=== PATIENT | male | born 1995 | race Caucasian/White ===

== ENCOUNTER 2016-09-05 18:08 | Emergency (ER) | payer BC ==
[~2016-09-05] VITALS: Ht 172.7 cm; Wt 63.9 kg
[2016-09-05 18:11] VITALS: TEMP 37.7; Ht 172.7 cm; Wt 63.9 kg
[2016-09-05] MEDS ORDERED: AMPICILLIN/SULBACTAM SOD INJ 3,000 MG in SODIUM CHLORIDE 0.9% 100ML 100 ML IV STA (18:30)
[2016-09-05] MEDS ORDERED: SODIUM CHLORIDE 0.9% 1000ML 1,000 ML IV STA (18:30)
[2016-09-05] MEDS ORDERED: DEXAMETHASONE SOD INJ 10 MG/ML VIAL IV STA (18:30)
[2016-09-05] MEDS ORDERED: MoRPHine SULFATE 2 MG/ML CARP IV STA (18:42)
[2016-09-05] MEDS ORDERED: DOXY100T PO (18:55)
[2016-09-05] MEDS ORDERED: IBUP-1050 PO (18:55)
[2016-09-05 19:16] LABS: HEMATOCRIT 41.1 % (42-52); MEAN CELL VOLUME 88.2 fL (80-100); MEAN CORPUSCULAR HEMOGLOBIN 31.1 pg (25-34); MEAN CORPUSCULAR HGB CONC 35.3 g/dl (32-36); MEAN PLATELET VOLUME 9.9 fL (7.4-10.4); PLATELET COUNT 197 K/uL (130-400); RED BLOOD COUNT 4.66 M/uL (4.7-6.1); WHITE BLOOD COUNT 17.67 K/uL (4.8-10.8)
[2016-09-05 19:19] LABS: BUN/CREATININE RATIO 11.9 (10-20); CALCIUM 9.3 mg/dl (8.5-10.1); CREATININE 1.2 mg/dl (0.60-1.40); POTASSIUM 4.1 mmol/L (3.5-5.1)
[2016-09-05 19:54] LABS: BASO % 0.2 %; BASO ABS # 0.03 K/uL (0-0.2); COMPLETE YES; EOS % 0.3 %; IG% 0.2 %; LYMPH % 10.2 %; LYMPH ABS # 1.81 K/uL (1.2-3.4); MONO % 10.3 %; NEUT % 78.8 %
[2016-09-05] MEDS ORDERED: PENI-82 PO (20:54)
[2016-09-05] MEDS ORDERED: HYDR-5688 PO (20:54)
[2016-09-05] MEDS ORDERED: CLC/300 PO (20:54)
[2016-09-05] MEDS ORDERED: METH4PAK PO (20:54)
[2016-09-05] MEDS ORDERED: CLINDAMYCIN 150MG HOME PACK PO STA (20:59)
[2016-09-05] MEDS ORDERED: NORCO 5/325MG HOME PACK PO STA (20:59)
[2016-09-05] MEDS ORDERED: PENICILLIN HOME PACK 500MG (4 DOSES)BTL PO STA (20:59)
--- NOTE | 2016-09-05 20:59 | EMERGENCY ROOM VISIT NOTE ---
History First contact with patient: 18:15 Chief Complaint: THROAT PAIN/INJURY Stated Complaint: ABSCESS IN MOUTH NEEDS DRAINED History of Present Illness The patient is a 20 year old male who presents to the Emergency Room via private vehicle with complaints of "abscess in mouth, needs drained". The patient states that he began Friday with a tickle in his throat, followed by this past Friday he woke up with swelling in the left tonsillar region. He states that he has been using doxycycline for his acne, and [id number] decongestants without relief. He does take ibuprofen, of which she began around 4 AM this morning and has been taking this every 4 hours. His last dose was at 5 PM. The tonsils according to the patient are swollen and red. He has difficulty swallowing which began Friday and today. He denies any drooling, but does note that he is expressing more saliva. He notes that he feels his voice has changed. He rates the left tonsillar pain as a 6.5-7/10. There is associated fevers and chills. He denies any nausea or vomiting. He was seen today by [facility], and evaluated by George Duggan PA-C who is referred the patient here for potential drainage of a suspected peritonsillar abscess. He notes that they did perform a rapid strep and he was found be positive. Review of Systems A complete 10-point Review of Systems was discussed with the patient, with pertinent positives and negatives listed in the History of Present Illness. All remaining Review of Systems questions can be considered negative unless otherwise specified. Past Medical/Surgical History No pertinent past medical history. Family History No pertinent family history. Social History Smoking Status: Never Smoker Social History: Patient is a [employer] student. Current/Historical Medications Scheduled Clindamycin HCl (Clindamycin HCl), 1 CAP PO TID Doxycycline Hyclate (Doxycycline Hyclate), 1 TAB PO DAILY Methylprednisolone (Medrol Dosepak), 1 PKT PO UD Penicillin V Potassium (Veetids), 500 MG PO QID Scheduled PRN Hydrocodone/Acetaminophen 5MG/325MG ([place] 5MG/325MG), 1-2 TABLET PO Q6H PRN for Pain Ibuprofen (Advil), 400 MG PO Q4 PRN for Pain Allergies Coded Allergies: No Known Allergies (Unverified , 09/05/16) Physical Exam Vital Signs Date Time Temp Pulse Resp B/P Pulse Ox O2 Delivery O2 Flow Rate FiO2 09/05/16 21:35 90 16 126/64 97 09/05/16 20:31 84 16 120/80 98 Room Air 09/05/16 19:34 89 18 117/67 100 Room Air 09/05/16 18:11 37.7 103 18 115/65 99 Room Air 09/05/16 18:11 Room Air Physical Exam VITAL SIGNS - Vital signs and nursing notes were reviewed. Patient is febrile 37.7, normotensive, tachycardic at a rate of 100 bpm and is saturating well on room air 99%. GENERAL -20-year-old male appearing his stated age who is in no acute distress. Communicates well with provider and answers questions appropriately, there is a hot potato voice noted. SKIN - Without rashes. No petechial rashes. HEAD - NC/AT. EYES - PERRL with EOMI bilaterally. Sclera anicteric. Palpebral conjunctiva pink and moist with no injection noted. EARS - No deformities of external structures noted on gross examination bilaterally. No pain elicited with palpation of the tragus bilaterally. External auditory canals without discharge or otorrhea. Tympanic membranes pearly muñoz without retraction or bulging. No fluid or purulent material visualized behind the TM. Handle of malleus, umbo, cone of light, pars tensa/ flaccid all easily visualized. NOSE - Midline and without cyanosis. No epistaxis or purulent drainage noted. Septum midline without deviation or septal hematoma noted. MOUTH/OROPHARYNX - Without perioral cyanosis. Buccal mucosa pink and moist and without leukoplakia. Mild trismus noted. Tongue midline with equal elevation of palate bilaterally. The soft palate on the left is edematous and erythematous. There is 3 borderline 4+ tonsillar edema of the left and 2+ on the right. The uvula is midline without deviation. The tonsils are not touching the uvula. NECK - Neck with FROM. Supple to palpation. Anterior cervical lymphadenopathy noted. No nuchal rigidity. LUNGS - Chest wall symmetric without accessory muscle use, intercostals retractions, or central cyanosis. Normal vesicular breath sounds CTA B/L. No wheezes, rales, or rhonchi appreciated. CARDIAC - RRR with S1/S2. No murmur, rubs, or gallops appreciated. Medical Decision & Procedures Laboratory Results 09/05/16 18:54 Red Blood Count 4.66, Mean Corpuscular Volume 88.2, Mean Corpuscular Hemoglobin 31.1, Mean Corpuscular Hemoglobin Concent 35.3, Mean Platelet Volume 9.9, Neutrophils (%) (Auto) 78.8, Lymphocytes (%) (Auto) 10.2, Monocytes (%) (Auto) 10.3, Eosinophils (%) (Auto) 0.3, Basophils (%) (Auto) 0.2, Neutrophils # (Auto ) 13.92, Lymphocytes # (Auto) 1.81, Monocytes # (Auto) 1.82, Eosinophils # (Auto ) 0.05, Basophils # (Auto) 0.03 09/05/16 18:54 Test 09/05/16 18:54 White Blood Count 17.67 K/uL (4.8-10.8) Red Blood Count 4.66 M/uL (4.7-6.1) Hemoglobin 14.5 g/dL (14.0-18.0) Hematocrit 41.1 % (42-52) Mean Corpuscular Volume 88.2 fL (80-100) Mean Corpuscular Hemoglobin 31.1 pg (25-34) Mean Corpuscular Hemoglobin Concent 35.3 g/dl (32-36) Platelet Count 197 K/uL (130-400) Mean Platelet Volume 9.9 fL (7.4-10.4) Neutrophils (%) (Auto) 78.8 % Lymphocytes (%) (Auto) 10.2 % Monocytes (%) (Auto) 10.3 % Eosinophils (%) (Auto) 0.3 % Basophils (%) (Auto) 0.2 % Neutrophils # (Auto) 13.92 K/uL (1.4-6.5) Lymphocytes # (Auto) 1.81 K/uL (1.2-3.4) Monocytes # (Auto) 1.82 K/uL (0.11-0.59) Eosinophils # (Auto) 0.05 K/uL (0-0.5) Basophils # (Auto) 0.03 K/uL (0-0.2) RDW Standard Deviation 40.5 fL (36.4-46.3) RDW Coefficient of Variation 12.7 % (11.5-14.5) Immature Granulocyte % (Auto) 0.2 % Immature Granulocyte # (Auto) 0.04 K/uL (0.00-0.02) Anion Gap 6.0 mmol/L (3-11) Est Creatinine Clear Calc Drug Dose 88.8 ml/min Estimated GFR () 100.3 Estimated GFR (Non- 86.5 BUN/Creatinine Ratio 11.9 (10-20) Calcium Level 9.3 mg/dl (8.5-10.1) Medications Administered Medications (Trade) Dose Ordered Sig/Royal Route Start Time Stop Time Status Last Admin Dose Admin Sodium Chloride 1,000 ml @ 999 mls/hr Q1H1M STAT IV 09/05/16 18:30 09/05/16 19:30 DC 09/05/16 19:01 999 MLS/HR Ampicillin Sodium/ Sulbactam Sodium/ Sodium Chloride (Unasyn Inj/Nss 100ml) 108 ml @ 200 mls/hr NOW STAT IV 09/05/16 18:30 09/05/16 19:02 DC 09/05/16 19:34 200 MLS/HR Dexamethasone Sodium Phosphate (Decadron Inj) 10 mg NOW STAT IV 09/05/16 18:30 09/05/16 18:38 DC 09/05/16 19:01 10 MG Morphine Sulfate (MoRPHine SULFATE INJ) 2 mg NOW STAT IV 09/05/16 18:42 09/05/16 18:43 DC 09/05/16 19:03 2 MG Acetaminophen/ Hydrocodone Bitart ([place] 5/325mg Home Pack) 1 homepack UD STAT PO 09/05/16 20:59 09/05/16 21:03 DC 09/05/16 21:09 1 HOMEPACK Clindamycin HCl (Cleocin 150MG Home Pack) 2 homepack UD STAT PO 09/05/16 20:59 09/05/16 21:03 DC 09/05/16 21:09 2 HOMEPACK Penicillin V Potassium (Pen-Vk 500MG Home Pack) 1 homepack UD STAT PO 09/05/16 20:59 09/05/16 21:03 DC 09/05/16 21:10 1 HOMEPACK Medical Decision Patient was seen and evaluated as above. He presents with referral for potential peritonsillar abscess drainage. Clinically he appears to have a potential peritonsillar abscess. IV access was initiated and the above workup was performed. I did elect to give him 10 mg of Decadron followed by 3 g of Unasyn. For pain he was given 2 mg of morphine. He was reevaluated and was feeling much better. He was also hydrated with 1 liter of normal saline. He is a leukocytosis of 17.67, mild anemia noted with red blood cell count of 4.66. PRP unremarkable. I then called the on-call ear nose and throat surgeon , Dr. Caruso. He agreed to come in and evaluate the patient. Dr. Caruso then aspirated approximately 2 mL's of purulent drainage from the left tonsillar region. Please refer to his procedure note. It was then recommended to provide the patient with Pen-Vee K 500 mg 4 times a day for 10 days. Clindamycin 300 mg 3 times a day for 7 days. A pain medication, school note as well as a Medrol Dosepak. I do believe these are all reasonable medications. Because the patient's pharmacy was closed I did elect to send the first day supply home with the patient with the remainder sent to the pharmacy. He'll be given a short-term prescription for [place] for pain. He is to return here for any worsening, and is to call the ear nose and throat surgeons office first thing tomorrow morning to schedule follow-up for Friday. Patient was educated upon worrisome symptoms which to return, had questions prior to discharge and was discharged home in good condition. In evaluation treatment this patient following differential diagnoses were entertained: Streptococcal pharyngitis, peritonsillar abscess, epiglottitis, among others. Impression Primary Impression: Peritonsillar abscess Departure Information Dispostion Home / Self-Care Condition GOOD Prescriptions Hydrocodone/Acetaminophen 5MG/325MG ([place] 5MG/325MG) Tab 1-2 TABLET PO Q6H Y for Pain, #15 TAB For Initial Treatment Prov: Vineet Quintana PA-C 09/05/16 Methylprednisolone (MEDROL DOSEPAK) 4 Mg Brian 1 PKT PO UD for 6 Days, #1 PKT Prov: Vineet Quintana PA-C 09/05/16 Clindamycin HCl (Clindamycin HCl) 300 Mg Cap 1 CAP PO TID for 6 Days, #18 CAP Prov: Vineet Quintana PA-C 09/05/16 Penicillin V Potassium (Veetids) 500 Mg Tab 500 MG PO QID for 9 Days, #36 TAB Prov: Vineet Quintana PA-C 09/05/16 Referrals George Duggan PA-C (PCP) Chente Caruso M.D. Patient Instructions My [facility] Additional Instructions You were seen in the emergency department for your peritonsillar abscess. You were seen in the emergency department for your sore throat. You were prescribed PEN VK 500mg to be taken every 6 hours (4 times daily) for 10 days. This is an antibiotic. All antibiotics have the potential to cause diarrhea. Stop this medication and contact a medical provider if you were to develop any significant adverse side effects including: wheezing, shortness of breath, passing out, vomiting, or a diffuse rash. Always take antibiotics as directed and COMPLETE the ENTIRE course regardless of the improvement of your symptoms. You were prescribed Clindamycin to be taken three times daily (every 8 hours) for 7 days. This is an antibiotic. All antibiotics have the potential to cause diarrhea. Stop this medication and contact a medical provider if you were to develop any significant adverse side effects including: wheezing, shortness of breath, passing out, vomiting, or a diffuse rash. Always take antibiotics as directed and COMPLETE the ENTIRE course regardless of the improvement of your symptoms. You had been prescribed [place] for your pain. This is a narcotic medication which makes illegal for you to drive or operate machinery. Do not take this with tylenol. For pain and fever control, you can use the following [id number] medicines (if >12 yo): - Regular strength (200 mg/tab) Advil (ibuprofen) 1-2 tabs every 4-6 hours as needed. Do not exceed a dose of 3200 mg per day. - For best results, alternate dosing of Tylenol and Advil. In addition to your prescribed medications, you can also use the following home remedies: - Warm salt-water gargles 4 times per day can soothe your throat and help to fight infection. - Warm tea with honey can soothe your throat. Return to the emergency department if your symptoms persist or worsen over the next 2-3 days despite treatment course outlined above. Return to the emergency department if you develop the following symptoms of: inability to swallow solids , liquids, or drool; excessive wheezing or inability to catch your breath; or intractable fever or pain. You have been provided the number for Dr. Caruso, please call this number tomorrow to schedule follow-up for Friday. Dr. Caruso is quality assurance monitor chassis all weekend, if you experience any difficulties please return to emergency department immediately. Thank you for your time.
[2016-09-05 21:35] VITALS: BP 126/64; PULSE 90; O2SAT 97
--- NOTE | 2016-09-06 04:36 | ENT CONSULTATION ---
DATE OF CONSULTATION: 09/05/2016 PERSON REQUESTING CONSULTATION: MYRANDA Gonzales in the Emergency Department. INDICATION: Rule out left peritonsillar abscess. 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 He was well until 2 days ago when he developed a tickling sensation his throat. He continued to have increased discomfort in his throat which led to increased difficulty in swallowing today. He went to [facility] and was directed to my office. Due to lack of a ride, he was unable to make it to my office and came to the Emergency Department. His past medical history, review of systems and vitals, they are all documented in the Emergency Department report. PHYSICAL EXAMINATION: GENERAL: This is an alert and cooperative, oriented young man appearing his stated age. His father was present in the room. He was examined in module C4. HEENT: The patient had a hot potato voice. He did not have trismus. He did not have uvular deviation. He had only minimal fullness in the left peritonsillar area. He had a massive left tonsil, compared to his right tonsil. I decided to perform aspiration as opposed to incision and drainage. I sprayed the back of his throat with Cetacaine spray and then aspirated with a #18 gauge needle and bri off 2 mL of pus. This was sent for culture. ASSESSMENT AND PLAN: This patient did have a very minimal left peritonsillar abscess. I discussed with Dinh Manley PA-C, that he should be on 4 medications: A. Penicillin-VK 500 mg q.i.d. for 10 days. B. Clindamycin 300 mg t.i.d. for 7 days. C. Medrol Dosepak x1. D. Some form of a pain medicine. I also recommended to the patient q.i.d. gargles with salt water, increased p.o. fluid intake, decreased activities, and rest until FridaySeptember 09. I also asked Dinh Manley PA-C, to provide the patient with a note to be off work until 09/09. The patient was also given my contact information for my office and will return to see me in my office on September 09. ASHU
== END 2016-09-05 21:35 | disposition home or self-care (01) ==
LOC: C.EDB 18:11 → C.EDC 21:35
DX: J36 Peritonsillar abscess (principal); R50.9 Fever, unspecified

== ENCOUNTER 2016-12-17 17:36 | Inpatient (IN) | payer BC ==
[~2016-12-17] VITALS: Ht 177.8 cm; Wt 63.8 kg
[~2016-12-17 17:36] MED LIST: DOXY100T PO; HYDR-5688 PO; IBUP-1050 PO
[2016-12-17] MEDS ORDERED: SODIUM CHLORIDE 0.9% 1000ML 1,000 ML IV STA (18:05)
[2016-12-17] MEDS ORDERED: ACETAMINOPHEN IV 100 ML IV STA (18:05)
[2016-12-17 18:15] LABS: BASO % 0.1 %; BASO ABS # 0.02 K/uL (0-0.2); COMPLETE YES; EOS % 0.4 %; IG% 0.4 %; LYMPH % 7.4 %; LYMPH ABS # 1.27 K/uL (1.2-3.4); MEAN CELL VOLUME 90.7 fL (80-100); MEAN CORPUSCULAR HEMOGLOBIN 32.3 pg (25-34); MEAN CORPUSCULAR HGB CONC 35.6 g/dl (32-36); MEAN PLATELET VOLUME 10.3 fL (7.4-10.4); MONO % 9.1 %; NEUT % 82.6 %; PLATELET COUNT 182 K/uL (130-400); RED BLOOD COUNT 4.74 M/uL (4.7-6.1); WHITE BLOOD COUNT 17.09 K/uL (4.8-10.8)
[2016-12-17] MEDS ORDERED: DEXAMETHASONE SOD INJ 10 MG/ML VIAL IV ONE (18:15)
[2016-12-17] MEDS ORDERED: CLIN1CAP51 PO (18:17)
[2016-12-17] MEDS ORDERED: ACET-1256 PO (18:17)
[2016-12-17] MEDS ORDERED: HYDR-5688 PO (18:17)
[2016-12-17] MEDS ORDERED: PRED20TA PO (18:17)
[2016-12-17] MEDS ORDERED: AMPICILLIN/SULBACTAM SOD INJ 3,000 MG in SODIUM CHLORIDE 0.9% 100ML 100 ML IV ONE (18:30)
--- NOTE | 2016-12-17 18:37 | EMERGENCY ROOM VISIT NOTE ---
History First contact with patient: 17:48 Chief Complaint: OTHER COMPLAINT Stated Complaint: PRAKASH TONSILAR ABSECESS History of Present Illness The patient is a 20 year old male who presents to the Emergency Room with complaints of sore throat, difficulty swallowing, and fevers started 2 days ago. Patient states he saw his provider at [facility] last night, who suspected a left peritonsillar abscess and placed him on clindamycin, prednisone, and [place] for pain. He states his rapid strep test there was positive. Patient states his symptoms got progressively worse today, he is having more pain with swallowing, persistent fevers, and increased swelling in his throat. Patient's father notes that his voice sounds muffled today which is new. Patient reports a history of frequent strep infections, previous left peritonsillar abscess in August that was drained. He states he is scheduled to have a tonsillectomy on by Dr. Caruso. Denies difficulty breathing or wheezing, chest pain, nausea or vomiting, abdominal pain, urinary symptoms, or rash. Review of Systems A complete 10 point review of systems was reviewed with the patient with pertinent positives and negatives as per history of present illness. All else were negative. Past Medical/Surgical History Medical Problems: (1) Acute tonsillitis Social History Smoking Status: Never Smoker Current/Historical Medications Scheduled Clindamycin HCl (Clindamycin HCl), 300 MG PO TID Doxycycline Hyclate (Doxycycline Hyclate), 1 TAB PO DAILY Prednisone (Prednisone), 60 MG PO DAILY Scheduled PRN Acetaminophen (Tylenol), 1,000 MG PO Q8 PRN for Pain Hydrocodone/Acetaminophen 5MG/325MG ([place] 5MG/325MG), 1 TABLET PO Q4 PRN for Pain Physical Exam Vital Signs Date Time Temp Pulse Resp B/P (MAP) Pulse Ox O2 Delivery O2 Flow Rate FiO2 12/17/16 18:51 38.1 99 18 130/71 100 Room Air 12/17/16 18:18 98 Room Air 12/17/16 17:38 38.4 102 18 122/67 99 Room Air Physical Exam CONSTITUTIONAL: No acute distress, but appears uncomfortable. Moderately dehydrated. Alert and oriented X 4 with normal affect. HEENT: Normocephalic, atraumatic. Pupils equal, round and reactive to light, EOMI. TMs normal. Pharynx injected and erythematous with pustules noted, left greater than right, with right deviation of the uvula. Positive trismus. Dry mucous membranes. NECK: Supple, full active range of motion without discomfort. Left anterior cervical adenopathy, tender to palpation. RESPIRATORY: Clear to auscultation bilaterally with no wheezing, crackles, rhonchi or stridor. Equal expansion bilaterally. CARDIOVASCULAR: Regular rate and rhythm with no murmurs, rubs or gallops. Normal peripheral perfusion. No edema. GASTROINTESTINAL: Soft, nontender, nondistended. Bowel sounds present in all quadrants. MUSCULOSKELETAL: Full range of motion of all joints without discomfort. INTEGUMENTARY: No rash or other significant dermatologic conditions noted. NEUROLOGIC: Cranial nerves II-XII grossly intact. No focal neurologic deficits noted. Medical Decision & Procedures Laboratory Results 12/17/16 18:05 Red Blood Count 4.74, Mean Corpuscular Volume 90.7, Mean Corpuscular Hemoglobin 32.3, Mean Corpuscular Hemoglobin Concent 35.6, Mean Platelet Volume 10.3, Neutrophils (%) (Auto) 82.6, Lymphocytes (%) (Auto) 7.4, Monocytes (%) (Auto) 9.1, Eosinophils (%) (Auto) 0.4, Basophils (%) (Auto) 0.1, Neutrophils # (Auto) 14.12, Lymphocytes # (Auto) 1.27, Monocytes # (Auto) 1.55, Eosinophils # (Auto) 0.07, Basophils # (Auto) 0.02 12/17/16 18:05 Test 12/17/16 18:05 12/17/16 18:12 White Blood Count 17.09 K/uL (4.8-10.8) Red Blood Count 4.74 M/uL (4.7-6.1) Hemoglobin 15.3 g/dL (14.0-18.0) Hematocrit 43.0 % (42-52) Mean Corpuscular Volume 90.7 fL (80-100) Mean Corpuscular Hemoglobin 32.3 pg (25-34) Mean Corpuscular Hemoglobin Concent 35.6 g/dl (32-36) Platelet Count 182 K/uL (130-400) Mean Platelet Volume 10.3 fL (7.4-10.4) Neutrophils (%) (Auto) 82.6 % Lymphocytes (%) (Auto) 7.4 % Monocytes (%) (Auto) 9.1 % Eosinophils (%) (Auto) 0.4 % Basophils (%) (Auto) 0.1 % Neutrophils # (Auto) 14.12 K/uL (1.4-6.5) Lymphocytes # (Auto) 1.27 K/uL (1.2-3.4) Monocytes # (Auto) 1.55 K/uL (0.11-0.59) Eosinophils # (Auto) 0.07 K/uL (0-0.5) Basophils # (Auto) 0.02 K/uL (0-0.2) RDW Standard Deviation 43.5 fL (36.4-46.3) RDW Coefficient of Variation 13.0 % (11.5-14.5) Immature Granulocyte % (Auto) 0.4 % Immature Granulocyte # (Auto) 0.06 K/uL (0.00-0.02) Anion Gap 8.0 mmol/L (3-11) Est Creatinine Clear Calc Drug Dose 96.7 ml/min Estimated GFR () 111.4 Estimated GFR (Non- 96.1 BUN/Creatinine Ratio 14.6 (10-20) Calcium Level 9.4 mg/dl (8.5-10.1) Bedside Lactic Acid Venous 0.78 mmol/L (0.90-1.70) Medications Administered Medications (Trade) Dose Ordered Sig/Royal Route Start Time Stop Time Status Last Admin Dose Admin Sodium Chloride 1,000 ml @ 999 mls/hr Q1H1M STAT IV 12/17/16 18:05 12/17/16 19:05 DC 12/17/16 18:31 999 MLS/HR Dexamethasone Sodium Phosphate (Decadron Inj) 10 mg NOW ONCE IV 12/17/16 18:15 12/17/16 18:16 DC 12/17/16 18:25 10 MG Acetaminophen 100 ml @ 400 mls/hr NOW STAT IV 12/17/16 18:05 12/17/16 18:19 DC 12/17/16 18:31 400 MLS/HR Ampicillin Sodium/ Sulbactam Sodium 3000 mg/Sodium Chloride 108 ml @ 200 mls/hr ONE ONCE IV 12/17/16 18:30 12/17/16 19:02 DC 12/17/16 18:47 200 MLS/HR Medical Decision CC: Patient presenting with complaint of sore throat, fevers Interpretation of Labs: Leukocytosis with left shift, no anemia, no significant electrolyte abnormalities, renal function Differential Diagnosis: Includes, but not limited to peritonsillar abscess, strep infection, pharyngitis, dehydration, failed outpatient treatment, among others. Medication Reconciliation: I attest that I have personally reviewed the patient' s current medication list. Vital signs review: I reviewed the patient's vital signs and interpret them as follows: T: Afebrile; BP: Normotensive; HR: Tachycardic; RR: Within normal limits; Pulse Ox: Within normal limits on room air. Summary: Patient was evaluated at bedside, history of physical exam performed. Alert and in no acute distress, but does appear uncomfortable. Patient's voice is muffled. He is able to swallow his secretions. Febrile and tachycardic on arrival. Exam findings concerning for left-sided tonsillar swelling and uvular deviation to the right, left-sided cervical adenopathy, trismus, and muffled voice. Orders were placed at bedside for labs, IV fluid bolus, IV Decadron, IV Tylenol , IV Unasyn to treat for suspected peritonsillar abscess. Patient discussed with Dr. Nguyen, who agrees with my assessment and plan. Labs reviewed as above, significant for leukocytosis. Patient discussed with Dr. Geronimo, ENT, who evaluated the patient in the emergency department. No drainable abscess on multiple attempts per his note. He recommended admission overnight for observation and continued IV antibiotics, admitting under his service. Patient reassessed multiple times throughout ED stay, he remained stable, airway patent, reports improved pain after medications. Patient stable at time of admission. Impression Primary Impression: Acute tonsillitis Departure Information Dispostion Admitted as an inpatient Condition GOOD Referrals George Duggan PA-C (PCP) Kunal Geronimo MD Patient Instructions My [facility] Problem Qualifiers Primary Impression: Acute tonsillitis Pharyngitis/tonsillitis etiology: streptococcus Streptococcal tonsillitis recurrence: recurrent Qualified Codes: J03.01 - Acute recurrent streptococcal tonsillitis
[2016-12-17 18:38] LABS: BUN/CREATININE RATIO 14.6 (10-20); CALCIUM 9.4 mg/dl (8.5-10.1); CREATININE 1.1 mg/dl (0.60-1.40)
[2016-12-17] MEDS ORDERED: LIDOCAINE/EPINEPHRINE 1% 20 ML VIAL ONE (19:45)
[2016-12-17] MEDS ORDERED: BENZOCAIN/TETRACA/BUTAM SPRAY 200 APPLN/20 GM SPRY ONE (19:45)
[2016-12-17] MEDS ORDERED: ONDANSETRON INJ 2 MG/ML 2 ML VIAL IV PRN (20:00)
[2016-12-17] MEDS ORDERED: OXYCODONE HCL SOLN 5 MG/5 ML UDC PO PRN ×2 (20:00)
--- NOTE | 2016-12-17 20:44 | HISTORY & PHYSICAL EXAMINATION ---
DATE OF ADMISSION: 12/17/2016 OTOLARYNGOLOGY HEAD AND NECK SURGERY EMERGENCY ROOM CONSULTATION WELL ADMISSION HISTORY AND PHYSICAL I have been asked by nurse practitioner, Isha Schwarz as well as Dr. Nguyen to evaluate this patient for possible left peritonsillar abscess. HISTORY OF PRESENT ILLNESS: The patient is a 20-year-old male who has previously seen Dr. Chente Caruso in August of this year with a left peritonsillar abscess for which he performed a needle aspiration in the Emergency Room and got 2 mL of purulent material, but did not perform an incision and drainage due to the mild aspect. The patient was then seen in his office several days later and continued to improve, and he was placed on the surgery schedule for tonsillectomy on 12/25/2016. Dr. Milner is away on vacation this week and the patient was seen at [facility] last night and suspected of having a recurrent left peritonsillar abscess and was placed on clindamycin 300 mg p.o. q. 8 hours and prednisone 60 mg daily for 3 days as well as given prescription for [place] for pain. The patient states that his rapid stress test was positive. He has a history of recurrent streptococcal tonsillitis with approximately 3-4 episodes each year for the past several years. His symptoms progressively worsened despite this outpatient treatment and he had more pain with swallowing, fever, and trismus. He has a muffled voice. He was given 10 mg of Decadron, IV fluids, and his Unasyn hanging when I came to see the patient. He states that he feels "50% better" since first being seen in the Emergency Room. The patient denies any left-sided referred otalgia. He denies any shortness of breath. ALLERGIES: No known drug allergies. MEDICATIONS UPON ADMISSION: Clindamycin, prednisone and [place]. MEDICATIONS PRIOR TO ADMISSION: Doxycycline for acne. PAST MEDICAL HISTORY: 1. As above. 2. Acne. PAST SURGICAL HISTORY: None. FAMILY HISTORY: Noncontributory. No family history of bleeding disorders or malignant hyperthermia. SOCIAL HISTORY: The patient is a [employer] student studying [employer]. His family lives in the local area. He works at a local restaurant. He denies any tobacco use. He drinks alcohol socially. He denies any illicit drug use. PHYSICAL EXAMINATION: VITAL SIGNS: The patient's temperature is elevated at 38.4 degrees Celsius. He is mildly tachycardic with a pulse of 102. His respiration rate is 18. His blood pressure is 122/67. His pulse ox is 99% on room air. GENERAL: This is a young adult white male in no acute distress who has a mildly muffled voice. HEENT: His external auditory canals and tympanic membranes are clear. His pupils are equal, round and reactive to light and accommodation. His extraocular movements are intact. Nasal examination reveals a midline septum with no mucosal lesions or masses. Oral cavity and oropharyngeal examination reveals a mild amount of trismus. He does have left greater than right tonsillar enlargement with erythema bilaterally and more fullness on the left hand side, but there is no soft palate edema or uvular deviation. NECK: Reveals some tendered left anterior cervical upper jugulodigastric lymphadenopathy. There is no overlying warmth, erythema, or fluctuance. The patient has a normal respiratory rate and there is no audible wheezing. NEUROLOGIC: He is awake and alert and oriented x3. Cranial nerves II-XII are grossly intact. DESCRIPTION OF PROCEDURE: After verbally obtaining informed consent, the oral cavity and oropharynx was sprayed with topical Cetacaine spray. A total of 1.5 mL of 1% lidocaine with 1:100,000 epinephrine was used to inject the left peritonsillar space. After allowing adequate time for anesthesia, an 18 gauge needle on a 10 mL syringe was used to perform an attempted needle aspiration of a possible left peritonsillar abscess. Despite 3 needle attempts, there was no purulence obtained. The patient tolerated the procedure well with minimal blood loss. LABORATORY RESULTS: The patient has an elevated white blood cell count of 17, although he did take 60 mg of prednisone today. The rest of his laboratory examination is unremarkable. IMPRESSION AND RECOMMENDATIONS: This patient has a history of left peritonsillar abscess status post needle aspiration in August, who now has a left peritonsillar cellulitis and possible early abscess, although no purulent material was obtained on needle aspiration. I went over several options with the patient and his father including admission for IV antibiotics and IV steroids versus continued outpatient treatment with close clinical followup versus Bryan tonsillectomy. They have opted for admission and IV antibiotics and steroids. Therefore, I have taken the liberty of admitting him to my service and I placed him on Unasyn 3 grams IV q. 6 hours and Decadron 10 mg IV q. 8 hours as well as IV fluids and pain control. I will see him early tomorrow morning. Anticipated hospital stay is 24-48 hours. He is scheduled for tonsillectomy with Dr. Caruso on December 25. Assuming that we can quiet off his infection with antibiotics and steroids, he may proceed with that surgery. Dr. Caruso is on vacation, but I will apprise him of the patient's progress as it unfolds. If he has further decline in his symptoms despite IV antibiotics and IV steroids, then I would recommend Bryan tonsillectomy. If you have any questions regarding this consultation or this admission, please do not hesitate to contact me.
[2016-12-17 21:06] VITALS: O2SAT 96
[2016-12-17 21:10] VITALS: Ht 177.8 cm; Wt 63.8 kg
[2016-12-17 21:30] VITALS: BP 121/74; PULSE 75; TEMP 37.5; O2SAT 98
[2016-12-17] MEDS: LACTATED RINGER'S 1000ML 1,000 ML IV SCH (21:48)
[2016-12-17 22:47] VITALS: BP 119/71; PULSE 85; TEMP 37.1; O2SAT 97
[2016-12-18] MEDS: DEXAMETHASONE INJ 10 MG in SYRINGE 0 ML IV SCH ×3 (01:41→17:51)
[2016-12-18] MEDS: AMPICILLIN/SULBACTAM SOD INJ 3,000 MG in SODIUM CHLORIDE 0.9% 100ML 100 ML IV SCH ×4 (01:41→19:51)
[2016-12-18 07:15] VITALS: BP 122/74; PULSE 75; TEMP 36.6; O2SAT 100
[2016-12-18] MEDS: LACTATED RINGER'S 1000ML 1,000 ML IV SCH ×2 (07:17→17:51)
--- NOTE | 2016-12-18 07:33 | ENT PROGRESS NOTE ---
DATE: 12/18/2016 The patient is hospital day #2 for acute tonsillitis. He was seen in consultation in the Emergency Room and was found to have left greater than right acute tonsillitis with possible early abscess, but negative needle aspiration x3. Since admission, he feels that he is "80%" improved and has less throat pain. He denies any referred otalgia. His voice has improved. He is currently afebrile and his vital signs are stable. T-max was 38.1 since admission. He is currently 37.1. On examination, he has less trismus. His voice is improved. However, he still has left greater than right tonsillar erythema but no soft palate edema or uvular deviation. He also has what looks like healing ulcers on the anterior tongue. ASSESSMENT AND PLAN: A 20-year-old male with recurrent acute streptococcal tonsillitis who is scheduled for tonsillectomy next week with Dr. Chente Caruso. He was admitted for an acute exacerbation and is improving clinically. For now, I would like to keep him on IV antibiotics and IV steroids and I will check on him later this afternoon. He will likely be discharged either later this afternoon or early tomorrow morning and has an appointment already scheduled with Dr. Caruso next Friday prior to hopeful tonsillectomy next Friday.
[2016-12-18 15:15] VITALS: BP 113/68; PULSE 78; TEMP 37; O2SAT 100
[2016-12-18 23:50] VITALS: BP 117/67; PULSE 48; TEMP 36.6; O2SAT 98
[2016-12-19] MEDS: DEXAMETHASONE INJ 10 MG in SYRINGE 0 ML IV SCH (01:40)
[2016-12-19] MEDS: AMPICILLIN/SULBACTAM SOD INJ 3,000 MG in SODIUM CHLORIDE 0.9% 100ML 100 ML IV SCH ×2 (01:40→07:53)
[2016-12-19] MEDS: LACTATED RINGER'S 1000ML 1,000 ML IV SCH (03:12)
--- NOTE | 2016-12-19 05:28 | Discharge Instructions ---
Discharge Instructions Date of Service Dec 19, 2016. Admission Reason for Admission: Acute Tonsillitis Discharge Discharge Diagnosis / Problem: same Discharge Goals Goal(s): Therapeutic intervention Activity Recommendations Activity Limitations: as noted below MAY BE OFF FROM WORK UNTIL HE SEES DR. FLORES ON 12/23/16 . Current Hospital Diet Patient's current hospital diet: Regular Diet Discharge Diet Recommended Diet: Regular Diet Pending Studies Studies pending at discharge: no Medical Emergencies . Who to Call and When: Medical Emergencies: If at any time you feel your situation is an emergency, please call 911 immediately. . Non-Emergent Contact Non-Emergency issues call your: Surgeon . . "Provider Documentation" section prepared by Kunal Geronimo. . VTE Core Measure Inpt VTE Proph given/why not?: Treatment not indicated
[2016-12-19 05:48] VITALS: BP 117/67; PULSE 48; TEMP 36.6; O2SAT 98
--- NOTE | 2016-12-19 06:08 | DISCHARGE SUMMARY ---
ADMISSION DIAGNOSIS: [id number]-right acute tonsillitis. DISCHARGE DIAGNOSIS: Same. HOSPITAL COURSE: Patient is a 20-year-old male, who presented to the [facility] Emergency Room on 12/17/2016 with a 3-day history of a severe left-sided sore throat with muffled voice and trismus. On examination, it looked like he had [id number]-right acute tonsillitis with peritonsillar cellulitis and possible abscess. I was unable to obtain any purulent material with 3 different needle aspirations. Therefore, the patient was admitted for IV antibiotics and steroids. He is a previous patient of Dr. Caruso's, who performed a needle aspiration of the left peritonsillar abscess in August. He is supposed to have his tonsils out next Friday. Patient was admitted and continued to improve while on IV antibiotics ad IV steroids. He was on Unasyn and Decadron. Throughout his hospital course, he was afebrile and his vital signs were stable. He was discharged to home with some changes in the medications that he was already prescribed. I have asked him to increase his clindamycin to 300 mg 4 times daily. I have warned him about the possible side effect of Clostridium difficile infection with this antibiotic. I have asked him to take it on a full stomach and eat yogurt while he is on it. He should call if he has any severe, crampy and/or bloody diarrhea. I have also asked him to change his prednisone dosing schedule to 20 mg three times a day for three days, then 20 mg twice a day for three days. He already has an appointment with Dr. Caruso on December 23, at 0845 at [facility]. He is to call me if he has any worsening symptomatology from now until then, as Dr. Caruso is away on vacation currently. [facility]
--- NOTE | 2016-12-19 06:09 | ENT PROGRESS NOTE ---
DATE: 12/19/2016 SUBJECTIVE: The patient is hospital day 3 for left greater than right acute tonsillitis. The patient reports that he is markedly better. He denies any sore throat, odynophagia, or dysphagia. His voice has returned to normal. The patient is afebrile and his vital signs are stable. Oral cavity and oropharyngeal examination reveals no trismus. He still has left greater than right tonsillar erythema and enlargement, but there is less tonsillar swelling. There is no uvular deviation or soft palate edema. His neck is soft and supple, with no tenderness to the left upper jugular digastric region. ASSESSMENT AND PLAN: A 20-year-old male with left greater than right acute tonsillitis with history of left peritonsillar abscess who is scheduled to undergo tonsillectomy with Dr. Milner next Friday. I will discharge him today and follow up with Dr. Milner on FridayDecember 23 as already scheduled. The patient is to call if he has any worsening symptoms from now until then.
[2016-12-19 07:26] VITALS: BP 121/69; PULSE 62; TEMP 36.5; O2SAT 100
== END 2016-12-19 09:29 | disposition home or self-care (01) | DRG 153 ==
LOC: C.EDB 17:39 → C.MSN 20:07 → ENRESERV 20:44
DX: J03.01 Acute recurrent streptococcal tonsillitis (principal); Z79.52 Long term (current) use of systemic steroids; Z79.891 Long term (current) use of opiate analgesic